=== PATIENT | male | born 1990 | race Two or more races ===

== ENCOUNTER 2022-07-09 12:34 | Emergency (ER) | payer OTHER ==
[2022-07-09 12:44] VITALS: BP 107/61; PULSE 57; RESP 18; TEMP 98.1; BMI 26.5
[2022-07-09] MEDS ORDERED: BACITRACIN 15 GM TUBE TOPICAL OINTMENT TP ONE (13:28)
== END 2022-07-09 13:44 | disposition home or self-care (01) ==
LOC: JERFT 12:34 → JER 12:34 → JERFT 13:44
DX: S01.511A Laceration without foreign body of lip, initial encounter (principal); W54.0XXA Bitten by dog, initial encounter
CPT/HCPCS: 99281-25